=== PATIENT | male | born 1990 | race Caucasian/White ===

== ENCOUNTER 2021-01-24 19:08 | Emergency (ER) | payer OTHER ==
[~2021-01-24 19:08] MED LIST: MOBIC7.5 MG PO; PERCOCET 5-3251 EACH PO
[2021-01-24 19:41] LABS: BASOPHIL 0.7 % (0-2); EOSINOPHIL 2.3 % (0-5); HCT 41.5 % (42.0-52.0); HGB 13.9 g/dl (13.2-18.0); LYMPHOCYTE 37.8 % (15-48); MCH 28.7 pg (25.0-31.0); MCHC 33.5 g/dL (32.0-36.0); MCV 85.6 fL (78.0-100.0); MONOCYTE 6.4 % (0-12); MPV 8.6 fL (6.0-9.5); NEUTROPHIL 52.5 % (41-80); NRBC 0; PLT 235 K/uL (150-400); RBC 4.85 M/uL (4.70-6.00); RDW 12.6 % (11.5-14.0); WBC 6.1 K/uL (4.0-10.5)
[2021-01-24 19:57] LABS: ALBUMIN 4.3 g/dL (3.4-5.0); ALKALINE PHOSHATASE 68 U/L (46-116); ALT <6 U/L (16-63); AST 17 U/L (15-37); BILIRUBIN - TOTAL 0.5 mg/dL (0.2-1.0); BUN 15 mg/dL (7-18); BUN/CREAT RATIO (CALC) 14.3 RATIO; CHLORIDE 107 mmol/L (98-107); CO2 (BICARBONATE) 29 mmol/L (21-32); CREATININE 1.05 mg/dL (0.67-1.17); GLUCOSE 90 mg/dL (74-106); POTASSIUM 4.1 mmol/L (3.5-5.1); TOTAL PROTEIN 7.3 g/dL (6.4-8.2)
== END 2021-01-24 21:50 | disposition home or self-care (01) ==
LOC: FER 19:08
PROVIDERS: Emergency Medicine
DX: R07.9 Chest pain, unspecified (principal); R05 Cough; R00.2 Palpitations
CPT/HCPCS: 36415; 71045; 80053; 84484; 85025; 85379; 93005

== ENCOUNTER 2022-03-16 19:13 | Emergency (ER) | payer OTHER ==
[2022-03-16] MEDS ORDERED: NORCO 5-325 TA1 EACH PO (19:51)
[2022-03-16] MEDS ORDERED: NAPROXEN500 MG PO (19:56)
== END 2022-03-16 20:20 | disposition home or self-care (01) ==
LOC: FER 19:13
DX: S43.101A Unspecified dislocation of right acromioclavicular joint, initial encounter (principal); W55.12XA Struck by horse, initial encounter; Y92.009 Unspecified place in unspecified non-institutional (private) residence as the place of occurrence of the external cause
CPT/HCPCS: 73030

== ENCOUNTER → 2022-03-22 | Day surgery (SDC) | payer OTHER ==
[~2022-03-22] VITALS: Ht 162.6 cm; Wt 54.0 kg
[~2022-03-22] MED LIST changes: +NAPROXEN500 MG PO; +NORCO 5-325 TA1 EACH PO
== END | disposition home or self-care (01) ==
LOC: FAS 09:00
DX: S43.101A Unspecified dislocation of right acromioclavicular joint, initial encounter (principal); S43.81XA Sprain of other specified parts of right shoulder girdle, initial encounter; W55.12XA Struck by horse, initial encounter; Y93.9 Activity, unspecified; K21.9 Gastro-esophageal reflux disease without esophagitis; F84.5 Asperger's syndrome; F90.9 Attention-deficit hyperactivity disorder, unspecified type
CPT/HCPCS: C1713; C1762; J0690; J0735; J1100; J1170; J1885; J2250; J2405; J2704; J2795; J3010; J7120